=== PATIENT | male | born 1930 | race Caucasian/White ===

== ENCOUNTER → 2017-10-18 | Outpatient (CLI) | payer MEDICARE, BC ==
[~2017-10-18] MED LIST: ASPI-515 PO; DIAZ5TAB PO; ESCI10TA10 PO; HYDR25TA6 PO; LOSA50TA2 PO
== END | disposition home or self-care (01) ==
LOC: CFH 10:45
PROVIDERS: ATTEND Internal Medicine Cardiovascular Disease
DX: I34.8 Other nonrheumatic mitral valve disorders (principal); Z95.2 Presence of prosthetic heart valve
CPT/HCPCS: 93306